=== PATIENT | male | born 2000 | race Caucasian/White ===

== ENCOUNTER 2020-06-12 18:51 | Inpatient (IN) | payer OTHER ==
[~2020-06-12] VITALS: Ht 190.5 cm; Wt 83.0 kg
[2020-06-12 19:09] VITALS: BP 112/79
[2020-06-12 21:27] LABS: HEMATOCRIT 43.3 % (42.0-52.0); HEMOGLOBIN 14.6 gm/dL (14.0-18.0); MCH 32.1 pg (26.0-34.0); MCHC 33.6 g/dL (28.0-37.0); MCV 95.6 fL (80.0-100.0); MPV 7.7 fl. (7.2-11.1); NUCLEATED RBCS 0 /100WBC; PLATELET COUNT* 327 thou/uL (150-400); RBC 4.54 mil/uL (4.50-6.00); RDW-CV 13.5 % (10.5-14.5); WBC 20.9 thou/uL (4.0-11.0)
[2020-06-12 21:40] LABS: CALCIUM 8.8 mg/dL (8.5-10.1); POTASSIUM 4.6 mmol/L (3.5-5.1)
[2020-06-12 21:45] LABS: ALBUMIN 4.1 g/dL (3.4-5.0); TOTAL BILIRUBIN 0.2 mg/dL (<0.1-1.0); TOTAL PROTEIN 7.6 g/dL (6.4-8.2)
[2020-06-12 21:46] LABS: ABSOLUTE BASOPHILS 0.4 thou/uL (0.0-0.2); ABSOLUTE EOSINOPHILS 0.4 thou/uL (0.0-0.7); ABSOLUTE LYMPHOCYTES 0.8 thou/uL (0.8-5.3); ABSOLUTE MONOCYTES 0.8 thou/uL (0.0-1.2); ABSOLUTE NEUTROPHILS 18.4 thou/uL (1.6-8.1); ATYPICAL LYMPHS 1 %
[2020-06-12 21:47] LABS: PLATELET ESTIMATE ADEQUATE
[2020-06-12 22:14] VITALS: BP 117/67
[2020-06-12 22:20] VITALS: BP 117/60
[2020-06-12 22:42] LABS: ESR (SEDRATE) 0 mm/hr (0-15)
[2020-06-13 00:10] VITALS: BP 120/62
[2020-06-13 04:02] VITALS: BP 117/60
[2020-06-13 07:30] VITALS: BP 115/58
[2020-06-13 11:46] VITALS: BP 126/68
--- NOTE | 2020-06-13 14:22 | EKG ---
[place] [address] ELECTROCARDIOGRAM REPORT Name: MERCEDES PARADA Room: [address] ADM IN .R.#: [id number] Admission: 06/13/20 Attend Phys: Stanislaw Renteria Discharge: Date of : 89 Date of Service: 06/12/20 2145 Report #: [id number] THIS REPORT FOR: //name// [facility] ED Test Date: 2020-06-12 Test Time: 21:45:23 Pat Name: MERCEDES PARADA Department: Room: [facility] Gender: M Sound Cutter: SARAH : 2000 Requested By: Shelly Hernandez Order Number: [id number] MD: Kevin Smith Measurements Intervals [place] Rate: 56 P: 66 VT: 147 QRS: 62 QRSD: 105 T: 41 QT: 424 QTc: 410 Interpretive Statements Sinus rhythm ST elev, probable normal early repol pattern Baseline wander in lead(s) I,III,aVR,aVL,aVF,V4,V5,V6 No previous ECG available for comparison Electronically Signed On 06-13-2020 14:22:33 CDT by Kevin Smith [email or web address] <ELECTRONICALLY SIGNED> By: Kevin Smith MD, [facility] 06/13/20 1422 44 44 Kevin Smith MD, FAC /EPI
[2020-06-13 16:43] VITALS: BP 118/58
[2020-06-13 20:30] VITALS: BP 122/57
[2020-06-14] VITALS: BP 108/53
[2020-06-14 04:00] VITALS: BP 107/56
[2020-06-14 08:00] VITALS: BP 104/58
[2020-06-14] MEDS ORDERED: DIPHENHYDR50 MG/1 M1 PO (10:05)
[2020-06-14] MEDS ORDERED: FAMOTIDINE20 MG/2 M2 PO (10:06)
[2020-06-14] MEDS ORDERED: MEDROLDOSEPACK PO (10:09)
[2020-06-14 12:19] VITALS: BP 104/58
== END 2020-06-14 12:30 | disposition home or self-care (01) | DRG 916 ==
LOC: M.ERS 18:51 → M.TBA-ER 21:30 → M.2W 22:42
PROVIDERS: Personal Emergency Response Attendant; ADMIT Family Medicine; ATTEND Family Medicine
DX: T78.3XXA Angioneurotic edema, initial encounter (principal); F17.220 Nicotine dependence, chewing tobacco, uncomplicated; D72.829 Elevated white blood cell count, unspecified; Z20.828 Contact with and (suspected) exposure to other viral communicable diseases; Z91.048 Other nonmedicinal substance allergy status; Z23 Encounter for immunization